=== PATIENT | female | born 1990 | race Caucasian/White ===

== ENCOUNTER 2017-08-20 18:55 | Emergency (ER) | payer MEDICAID, OTHER ==
[2017-08-20 19:08] VITALS: BP 107/71
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
== END 2017-08-20 20:21 | disposition home or self-care (01) ==
LOC: CED 18:55
DX: S69.91XA Unspecified injury of right wrist, hand and finger(s), initial encounter (principal); Z91.040 Latex allergy status; X58.XXXA Exposure to other specified factors, initial encounter
CPT/HCPCS: 73110-PO

== ENCOUNTER 2017-09-04 17:57 | Emergency (ER) | payer MEDICAID ==
--- NOTE | 2017-09-04 18:29 | EDPHY ---
H & P Stated Complaint: abd pain Time Seen by Provider: 09/04/17 18:28 HPI/ROS: HPI: This is a 27-year-old female who presents with Chief Complaint: Abdominal pain, 12 weeks Location: Quality: Duration: Signs and Symptoms: no fever, no nausea, no vomiting, no hematemesis, no blood in stool, no abdominal bloating, no diarrhea, no back pain, no urinary symptoms , no vaginal bleeding/discharge, no indigestion, no chest pain, no shortness of breath Timing: Severity: Context: Modifying Factors: Comment: ROS: see HPI Constitutional: No fever, no chills, no weight loss Eyes: No blurred vision Respiratory: No shortness of breath, no cough Cardiovascular: No chest pain, no palpitations Gastrointestinal: No nausea, no vomiting, no diarrhea, no hematemesis, no blood in stool Genitourinary: No dysuria, no blood in urine Extremities: No myalgias, no edema Neurologic: No weakness, no numbness Skin: No rashes, no petechiae Hematologic: No bruising, no bleeding MEDICAL/SURGICAL/SOCIAL HISTORY: Medical history: Bipolar, Rheumatoid Arthritis. asthma, polycystic ovary syndrome, migraines Surgical history: Denies Social history: Tobacco use. Family history noncontributory. CONSTITUTIONAL: awake and alert, no obvious distress HEENT: Atraumatic and normocephalic, PERRL, EOMI. Nares patent; no rhinorrhea; no nasal mucosal edema. Tympanic membranes clear. Oropharynx clear, no exudate and moist pink mucosa. Airway patent. No lymphadenopathy. No meningismus. Cardiovascular: Normal S1/S2, regular rate, regular rhythm, without murmur rub or gallop. PULMONARY/CHEST: Symmetrical and nontender. Clear to auscultation bilaterally. Good air movement. No accessory muscle usage. ABDOMEN: Soft, nondistended, nontender, no rebound, no guarding, no peritoneal signs, no masses or organomegaly. No CVAT. EXTREMITIES: 2/2 pulses, strength 5/5, no deformities, no clubbing, no cyanosis or edema. NEUROLOGICAL: no focal neuro deficits. GCS 15. SKIN: Warm and dry, no erythema. no rash. Good capillary refill. Source: Patient Exam Limitations: No limitations - Personal History LMP (Females 10-55): Current Tetanus/Diphtheria Vaccine: Yes Current Tetanus Diphtheria and Acellular Pertussis (TDAP): Yes - Medical/Surgical History Hx Asthma: Yes Hx Chronic Respiratory Disease: No Hx Diabetes: No Hx Cardiac Disease: No Hx Renal Disease: No Hx Cirrhosis: No Hx Alcoholism: No Hx HIV/AIDS: No Other PMH: Bipolar. Rheumatoid Arthritis. asthma, polycystice ovary syndrome, migraines - Social History Smoking Status: Current every day smoker Constitutional: Initial Vital Signs Temperature (C) 36.9 C 09/04/17 18:02 Heart Rate 115 H 09/04/17 18:02 Respiratory Rate 16 09/04/17 18:02 O2 Sat (%) 99 09/04/17 18:02 O2 Delivery Mode Room Air Allergies/Adverse Reactions: cefaclor [From Ceclor] Allergy (Verified 09/04/17 18:01) cephalexin monohydrate [From Keflex] Allergy (Verified 09/04/17 18:01) Hives chlorpheniramine maleate [From Supres] Allergy (Verified 09/04/17 18:01) Hives latex [Latex] Allergy (Verified 09/04/17 18:01) phenylpropanolamine HCl [From Supres] Allergy (Verified 09/04/17 18:01) Hives Home Medications: Medication Instructions Recorded lamoTRIgine [Lamictal Odt] 25 mg PO 01/16/12 Latuda 08/20/17 Seroquel 08/20/17 09/04/17 Medical Decision Making - Data Points Laboratory Results: 09/04/17 18:10 Urine Color YELLOW Urine Appearance HAZY Urine pH 5.0 (5.0-7.5) Ur Specific [place] 1.034 H (1.002-1.030) Urine Protein 1+ H (NEGATIVE) Urine Ketones TRACE H (NEGATIVE) Urine Blood NEGATIVE (NEGATIVE) Urine Nitrate NEGATIVE (NEGATIVE) Urine Bilirubin NEGATIVE (NEGATIVE) Urine Urobilinogen 2.0 EU H EU (0.2-1.0) Ur Leukocyte Esterase TRACE H (NEGATIVE) Urine RBC Pending Urine WBC Pending Ur Epithelial Cells Pending Urine Glucose NEGATIVE (NEGATIVE) Departure - Departure Referrals: NONE *PRIMARY CARE P,. [Primary Care Provider] - As per Instructions
[2017-09-04] MEDS ORDERED: NS 1,000 ML IV ONE (18:36)
--- NOTE | 2017-09-04 18:40 | EDPHY ---
H & P Stated Complaint: abd pain Time Seen by Provider: 09/04/17 18:28 HPI/ROS: CHIEF COMPLAINT: Pelvic pain HISTORY OF PRESENT ILLNESS: 27-year-old female G 8 SAB 7 12 weeks by early ultrasound with twins presents with lower abdominal pain. Onset of intermittent pelvic cramping this morning. Persistent since then. No pain now. No vaginal bleeding. She was on progesterone during this until week 10. REVIEW OF SYSTEMS: complete 10 point ROS negative except at noted in the HPI - Personal History LMP (Females 10-55): Current Tetanus/Diphtheria Vaccine: Yes Current Tetanus Diphtheria and Acellular Pertussis (TDAP): Yes - Medical/Surgical History Hx Asthma: Yes Hx Chronic Respiratory Disease: No Hx Diabetes: No Hx Cardiac Disease: No Hx Renal Disease: No Hx Cirrhosis: No Hx Alcoholism: No Hx HIV/AIDS: No Other PMH: Bipolar. Rheumatoid Arthritis. asthma, polycystice ovary syndrome, migraines - Social History Smoking Status: Current every day smoker Additional Social History: IV drug abuse, quit in April 2017 - Physical Exam Exam: General Appearance: Alert, pleasant Eyes: Pupils equal and round, no conjunctival pallor ENT, Mouth: Mucous membranes moist Neck: Normal inspection Respiratory: Lungs are clear to auscultation Cardiovascular: Regular rate and rhythm Gastrointestinal: Abdomen is soft and nontender Neurological: A&O, nonfocal, normal gait Skin: Warm and dry Extremities: Normal inspection Psychiatric: Mood and affect normal Constitutional: Initial Vital Signs Temperature (C) 36.9 C 09/04/17 18:02 Heart Rate 115 H 09/04/17 18:02 Respiratory Rate 16 09/04/17 18:02 O2 Sat (%) 99 09/04/17 18:02 O2 Delivery Mode Room Air Allergies/Adverse Reactions: cefaclor [From Ceclor] Allergy (Verified 09/04/17 18:01) cephalexin monohydrate [From Keflex] Allergy (Verified 09/04/17 18:01) Hives chlorpheniramine maleate [From Supres] Allergy (Verified 09/04/17 18:01) Hives latex [Latex] Allergy (Verified 09/04/17 18:01) phenylpropanolamine HCl [From Supres] Allergy (Verified 09/04/17 18:01) Hives Home Medications: Medication Instructions Recorded lamoTRIgine [Lamictal Odt] 25 mg PO 01/16/12 Latuda 08/20/17 Seroquel 08/20/17 09/04/17 Medical Decision Making - Diagnostics Imaging Results: Imaging Impressions Obstetrics Ultrasound 09/04/17 18:37 Impression: 1. Living dichorionic diamniotic twin , with no visible complication. 2. Posterior placenta overlying the internal os, a common finding at this gestational age. Findings discussed with Genie Acosta M.D., on September 04, 2017 at 2000. ED Course/Re-evaluation: This patient presents with lower abdominal cramping, concerning for threatened miscarriage. Pelvic ultrasound ordered. UA is contaminated. She does not have UTI symptoms. A urine culture was sent. I will not place her on antibiotics for now. Ultrasound results discussed with the patient. Abdomen continues to be soft and nontender. She will follow up with her salesperson flowers tomorrow. Differential Diagnosis: Differential diagnosis includes though it is not limited to threatened miscarriage, ectopic , ovarian cyst, ovarian torsion, PID, UTI, appendicitis. - Data Points Laboratory Results: Laboratory Results 09/04/17 18:41 09/04/17 18:41 09/04/17 09/04/17 09/04/17 18:41 18:41 18:10 WBC 11.52 10^3/uL H 10^3/uL (3.80-9.50) RBC 3.62 10^6/uL L 10^6/uL (4.18-5.33) Hgb 11.7 g/dL L g/dL (12.6-16.3) Hct 33.1 % L % (38.0-47.0) MCV 91.4 fL fL (81.5-99.8) MCH 32.3 pg pg (27.9-34.1) MCHC 35.3 g/dL g/dL (32.4-36.7) RDW 13.9 % % (11.5-15.2) Plt Count 206 10^3/uL 10^3/uL (150-400) MPV 11.0 fL fL (8.7-11.7) Neut % (Auto) 60.6 % % (39.3-74.2) Lymph % (Auto) 32.2 % % (15.0-45.0) [place] % (Auto) 5.6 % % (4.5-13.0) Eos % (Auto) 1.1 % % (0.6-7.6) Baso % (Auto) 0.2 % L % (0.3-1.7) Nucleat RBC Rel Count 0.0 % % (0.0-0.2) Absolute Neuts (auto) 6.97 10^3/uL H 10^3/uL (1.70-6.50) Absolute Lymphs (auto) 3.71 10^3/uL H 10^3/uL (1.00-3.00) Absolute Monos (auto) 0.65 10^3/uL 10^3/uL (0.30-0.80) Absolute Eos (auto) 0.13 10^3/uL 10^3/uL (0.03-0.40) Absolute Basos (auto) 0.02 10^3/uL 10^3/uL (0.02-0.10) Absolute Nucleated RBC 0.00 10^3/uL 10^3/uL (0-0.01) Immature Gran % 0.3 % % (0.0-1.1) Immature Gran # 0.04 10^3/uL 10^3/uL (0.00-0.10) Sodium 138 mEq/L mEq/L (135-145) Potassium 3.6 mEq/L mEq/L (3.5-5.2) Chloride 105 mEq/L mEq/L (97-110) Carbon Dioxide 20 mEq/l L mEq/l (22-31) Anion Gap 13 mEq/L mEq/L (8-16) BUN 7 mg/dL mg/dL (7-23) Creatinine 0.5 mg/dL L mg/dL (0.6-1.0) Estimated GFR > 60 Glucose 93 mg/dL mg/dL (70-100) Calcium 9.0 mg/dL mg/dL (8.5-10.4) Beta HCG, Quant 02556.00 mIU/mL H mIU/mL (0.00-4.83) Urine Color YELLOW Urine Appearance HAZY Urine pH 5.0 (5.0-7.5) Ur Specific [place] 1.034 H (1.002-1.030) Urine Protein 1+ H (NEGATIVE) Urine Ketones TRACE H (NEGATIVE) Urine Blood NEGATIVE (NEGATIVE) Urine Nitrate NEGATIVE (NEGATIVE) Urine Bilirubin NEGATIVE (NEGATIVE) Urine Urobilinogen 2.0 EU H EU (0.2-1.0) Ur Leukocyte Esterase TRACE H (NEGATIVE) Urine RBC 25-50 /hpf H /hpf (0-3) Urine WBC 3-5 /hpf H /hpf (0-3) Ur Epithelial Cells 2+ /lpf H /lpf (NONE-1+) Urine Mucus 2+ /lpf H /lpf (NONE-1+) Urine Glucose NEGATIVE (NEGATIVE) Medications Given: Discontinued Medications Acetaminophen (Tylenol) 1,000 mg PO EDNOW ONE Stop: 09/04/17 19:55 Last Admin: 09/04/17 20:01 Dose: 1,000 mg Sodium Chloride (Ns) 1,000 mls @ 0 mls/hr IV ONCE ONE; Wide Open PRN Reason: Protocol Stop: 09/04/17 18:37 Last Admin: 09/04/17 18:47 Dose: 1,000 mls Departure - Departure Disposition: Home, Routine, Self-Care Clinical Impression: Pelvic pain affecting Qualifiers: Trimester: first trimester Qualified Code(s): O26.891 - Other specified related conditions, first trimester; R10.2 - Pelvic and perineal pain ; R10.2 - Pelvic and perineal pain Condition: Good Instructions: Pelvic Pain in Women (ED) Additional Instructions: Return for worsening symptoms or any concerns. Follow-up with your residential field manager tomorrow. Drink plenty of fluids. Avoid heavy lifting. Referrals: NONE *PRIMARY CARE P,. [Primary Care Provider] - As per Instructions Stand Alone Forms: Work Limited Duty
[2017-09-04 18:52] LABS: PLATELET COUNT 206 10^3/uL (150-400)
[2017-09-04] MEDS ORDERED: ACETAMINOPHEN 500 MG TAB PO ONE (19:54)
[2017-09-04 20:40] VITALS: BP 111/66
== END 2017-09-04 20:38 | disposition home or self-care (01) ==
DX: O26.891 Other specified pregnancy related conditions, first trimester (principal); R10.2 Pelvic and perineal pain; E86.9 Volume depletion, unspecified; J45.909 Unspecified asthma, uncomplicated; F17.200 Nicotine dependence, unspecified, uncomplicated; Z3A.12 12 weeks gestation of pregnancy; Z91.040 Latex allergy status

== ENCOUNTER 2017-10-09 22:12 | Emergency (ER) | payer MEDICAID ==
[2017-10-09] MEDS ORDERED: NS 1,000 ML IV ONE (22:26)
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
[2017-10-09 22:51] LABS: PLATELET COUNT 191 10^3/uL (150-400)
[2017-10-09] MEDS ORDERED: NITROFURANTOIN MACROBID 100 MG CAP PO ONE (23:10)
[2017-10-10 00:36] VITALS: BP 116/70
== END 2017-10-10 00:36 | disposition home or self-care (01) ==
DX: O23.42 Unspecified infection of urinary tract in pregnancy, second trimester (principal); E86.9 Volume depletion, unspecified; B96.89 Other specified bacterial agents as the cause of diseases classified elsewhere; F17.200 Nicotine dependence, unspecified, uncomplicated; J45.909 Unspecified asthma, uncomplicated; Z3A.17 17 weeks gestation of pregnancy; Z79.82 Long term (current) use of aspirin; Z91.040 Latex allergy status

== ENCOUNTER → 2017-10-27 | Outpatient (CLI) | payer MEDICAID | LOC: FIMAGING 11:48 | PROVIDERS: ATTEND Obstetrics & Gynecology | DX: O30.042 Twin pregnancy, dichorionic/diamniotic, second trimester (principal); O99.342 Other mental disorders complicating pregnancy, second trimester; F31.9 Bipolar disorder, unspecified; Z3A.19 19 weeks gestation of pregnancy ==

== ENCOUNTER → 2017-11-24 | Outpatient (CLI) | payer MEDICAID | LOC: FIMAGING 11:26 | PROVIDERS: ATTEND Obstetrics & Gynecology | DX: O30.042 Twin pregnancy, dichorionic/diamniotic, second trimester (principal); O99.342 Other mental disorders complicating pregnancy, second trimester; F31.9 Bipolar disorder, unspecified; Z79.899 Other long term (current) drug therapy ==

== ENCOUNTER 2017-12-13 | Emergency (ER) | payer MEDICAID | END 2017-12-13 14:23 | disposition home or self-care (01) | DX: S63.501A Unspecified sprain of right wrist, initial encounter (principal); F17.200 Nicotine dependence, unspecified, uncomplicated; X50.1XXA Overexertion from prolonged static or awkward postures, initial encounter | CPT/HCPCS: L3984 ==

== ENCOUNTER → 2018-01-01 | Outpatient (CLI) | payer MEDICAID | LOC: FIMAGING 12:14 | PROVIDERS: ATTEND Obstetrics & Gynecology | DX: O30.043 Twin pregnancy, dichorionic/diamniotic, third trimester (principal); O99.333 Smoking (tobacco) complicating pregnancy, third trimester; O99.343 Other mental disorders complicating pregnancy, third trimester; Z3A.28 28 weeks gestation of pregnancy; F17.200 Nicotine dependence, unspecified, uncomplicated; Z79.899 Other long term (current) drug therapy ==

== ENCOUNTER 2018-01-02 13:19 | Observation (INO) | payer MEDICAID | END 2018-01-02 14:35 | disposition home or self-care (01) | LOC: FLD 13:19 | PROVIDERS: ADMIT Obstetrics & Gynecology; ATTEND Obstetrics & Gynecology | DX: O36.8130 Decreased fetal movements, third trimester, not applicable or unspecified (principal); O30.003 Twin pregnancy, unspecified number of placenta and unspecified number of amniotic sacs, third trimester; Z3A.28 28 weeks gestation of pregnancy ==

== ENCOUNTER → 2018-01-08 | Outpatient (CLI) | payer MEDICAID | LOC: FIMAGING 08:04 | PROVIDERS: ATTEND Obstetrics & Gynecology | DX: O30.043 Twin pregnancy, dichorionic/diamniotic, third trimester (principal); O36.5930 Maternal care for other known or suspected poor fetal growth, third trimester, not applicable or unspecified; O99.333 Smoking (tobacco) complicating pregnancy, third trimester; O99.343 Other mental disorders complicating pregnancy, third trimester; Z3A.29 29 weeks gestation of pregnancy ==

== ENCOUNTER 2018-01-12 11:55 | Day surgery (SDC) | payer MEDICAID | END 2018-01-12 13:32 | disposition home or self-care (01) | LOC: UNDOADMOB 11:55 → FLD 11:55 → FOBOP 11:55 → EDSTATUS 13:27 → FOBOP 13:32 | PROVIDERS: ATTEND Obstetrics & Gynecology | DX: O30.043 Twin pregnancy, dichorionic/diamniotic, third trimester (principal); O36.5931 Maternal care for other known or suspected poor fetal growth, third trimester, fetus 1; Z3A.30 30 weeks gestation of pregnancy ==

== ENCOUNTER → 2018-01-13 | Outpatient (CLI) | payer MEDICAID | LOC: FIMAGING 13:30 | PROVIDERS: ATTEND Obstetrics & Gynecology | DX: O30.043 Twin pregnancy, dichorionic/diamniotic, third trimester (principal); O36.5932 Maternal care for other known or suspected poor fetal growth, third trimester, fetus 2; O99.333 Smoking (tobacco) complicating pregnancy, third trimester; F17.210 Nicotine dependence, cigarettes, uncomplicated; O99.343 Other mental disorders complicating pregnancy, third trimester; F31.9 Bipolar disorder, unspecified; F43.10 Post-traumatic stress disorder, unspecified ==

== ENCOUNTER 2018-01-17 20:52 | Observation (INO) | payer MEDICAID | END 2018-01-17 22:10 | disposition home or self-care (01) | LOC: FLD 20:52 | PROVIDERS: ADMIT Obstetrics & Gynecology; ATTEND Obstetrics & Gynecology | DX: O30.003 Twin pregnancy, unspecified number of placenta and unspecified number of amniotic sacs, third trimester (principal); Z3A.31 31 weeks gestation of pregnancy ==

== ENCOUNTER 2018-01-19 11:50 | Day surgery (SDC) | payer MEDICAID | END 2018-01-19 12:59 | disposition home or self-care (01) | LOC: FLAB 11:50 → FOBOP 11:50 → EDSTATUS 12:28 → FOBOP 12:59 | PROVIDERS: ATTEND Obstetrics & Gynecology | DX: O30.003 Twin pregnancy, unspecified number of placenta and unspecified number of amniotic sacs, third trimester (principal); Z3A.31 31 weeks gestation of pregnancy ==

== ENCOUNTER 2018-01-22 12:16 | Day surgery (SDC) | payer MEDICAID ==
--- NOTE | 2018-01-22 13:41 | OBPROG ---
Labor Progress Note Assessment/Plan: Assessment: IUP at 31 wks with twins routine monitoring with NST Plan: Cont 2x/wk NSTs - watch for increased cramps, discharge etc 01/22/18 13:37 Subjective/Intrapartum Course: 01/22/18 13:38 pt denies problems per RN, feels no ctxns and no bleeding. very active babies. - Contraction Pattern Assessment Current Contraction Pattern: Regular (q 4-10, non palpable) - FHR Assessment Twin A FHR (bpm): 140 FHR Pattern Variability: Moderate FHR Category: 1 Twin B FHR (bpm): 130 FHR Pattern Variability: Moderate FHR Category: 1 Oxytocin Orders Assessment - Pre-Induction/Augmentation Assessment Gestational Age: 31 week(s) and 5 day(s) ICD10 Worksheet Patient Problems: Problems Problem Status Onset Fall Acute
== END 2018-01-22 13:04 | disposition home or self-care (01) ==
LOC: FOBOP 12:16
PROVIDERS: ATTEND Obstetrics & Gynecology
DX: O30.093 Twin pregnancy, unable to determine number of placenta and number of amniotic sacs, third trimester (principal); Z3A.31 31 weeks gestation of pregnancy

== ENCOUNTER → 2018-01-22 | Outpatient (CLI) | payer MEDICAID | LOC: FIMAGING 11:00 | PROVIDERS: ATTEND Obstetrics & Gynecology | DX: O30.043 Twin pregnancy, dichorionic/diamniotic, third trimester (principal); O36.5930 Maternal care for other known or suspected poor fetal growth, third trimester, not applicable or unspecified; Z3A.31 31 weeks gestation of pregnancy ==

== ENCOUNTER 2018-01-26 12:30 | Day surgery (SDC) | payer MEDICAID | END 2018-01-26 13:38 | LOC: FOBOP 12:30 → UNDOADMOB 12:30 → FLD 12:30 → FOBOP 13:38 → UNDODISOB 13:38 → EDSTATUS 01-27 13:25 | PROVIDERS: ATTEND Obstetrics & Gynecology | DX: O30.003 Twin pregnancy, unspecified number of placenta and unspecified number of amniotic sacs, third trimester (principal); Z3A.32 32 weeks gestation of pregnancy ==

== ENCOUNTER 2018-01-27 21:02 | Observation (INO) | payer MEDICAID ==
[2018-01-28] MEDS ORDERED: ceFAZolin 2 GM/DEXTROSE 100 ML IV ONE (00:53)
[2018-01-28] MEDS ORDERED: GABAPENTIN 300 MG CAP PO ONE (01:11)
[2018-01-28] MEDS ORDERED: QUEtiapine FUMARATE 50 MG TAB PO ONE (01:12)
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
[2018-01-28] MEDS ORDERED: LR 1,000 ML IV SCH (02:00)
[2018-01-28] MEDS ORDERED: LURASIDONE HCL 20 MG TAB PO ONE (02:00)
[2018-01-28] MEDS ORDERED: lamoTRIgine 100 MG TAB PO ONE (02:00)
[2018-01-28] MEDS ORDERED: NITROFURANTOIN MACROBID 100 MG CAP PO SCH (02:00)
[2018-01-28] MEDS ORDERED: TERBUTALINE SULFATE 1 MG/ML VIAL ONE (07:31)
[2018-01-28] MEDS ORDERED: OLIVE OIL 118 ML BTL ONE (07:32)
--- NOTE | 2018-01-28 09:46 | OBPROG ---
Labor Progress Note Assessment/Plan: Assessment: Plan: 01/28/18 09:45 - FHR Assessment Twin A FHR Pattern Variability: Moderate FHR Category: 1 Twin B FHR Pattern Variability: Moderate FHR Category: 1 Oxytocin Orders Assessment - Pre-Induction/Augmentation Assessment Gestational Age: 32 week(s) and 3 day(s) ICD10 Worksheet Patient Problems: Problems Problem Status Onset Fall Acute
== END 2018-01-28 08:20 | disposition home or self-care (01) ==
LOC: FLD 21:02
PROVIDERS: ADMIT Obstetrics & Gynecology; ATTEND Obstetrics & Gynecology
DX: Z03.79 Encounter for other suspected maternal and fetal conditions ruled out (principal); O30.043 Twin pregnancy, dichorionic/diamniotic, third trimester; O99.343 Other mental disorders complicating pregnancy, third trimester; O99.323 Drug use complicating pregnancy, third trimester; O99.333 Smoking (tobacco) complicating pregnancy, third trimester; F31.9 Bipolar disorder, unspecified; F43.12 Post-traumatic stress disorder, chronic; F11.11 Opioid abuse, in remission; F17.210 Nicotine dependence, cigarettes, uncomplicated; Z91.410 Personal history of adult physical and sexual abuse; Z91.42 Personal history of forced labor or sexual exploitation; Z3A.32 32 weeks gestation of pregnancy
CPT/HCPCS: 59025; G0378; J3105

== ENCOUNTER 2018-01-29 11:32 | Day surgery (SDC) | payer MEDICAID | END 2018-01-29 14:24 | disposition home or self-care (01) | LOC: FOBOP 11:32 | PROVIDERS: ATTEND Obstetrics & Gynecology | DX: O30.043 Twin pregnancy, dichorionic/diamniotic, third trimester (principal); O36.5930 Maternal care for other known or suspected poor fetal growth, third trimester, not applicable or unspecified; Z3A.32 32 weeks gestation of pregnancy ==

== ENCOUNTER → 2018-01-29 | Outpatient (CLI) | payer MEDICAID | LOC: FIMAGING 11:50 | PROVIDERS: ATTEND Obstetrics & Gynecology | DX: O30.043 Twin pregnancy, dichorionic/diamniotic, third trimester (principal); O36.5932 Maternal care for other known or suspected poor fetal growth, third trimester, fetus 2; Z3A.32 32 weeks gestation of pregnancy ==

== ENCOUNTER → 2018-02-02 | Day surgery (SDC) | payer MEDICAID | LOC: FOBOP 11:39 | PROVIDERS: ATTEND Obstetrics & Gynecology | DX: O30.003 Twin pregnancy, unspecified number of placenta and unspecified number of amniotic sacs, third trimester (principal); Z3A.33 33 weeks gestation of pregnancy ==

== ENCOUNTER 2018-02-05 10:48 | Day surgery (SDC) | payer MEDICAID | END 2018-02-05 12:24 | LOC: FOBOP 10:48 → UNDOADMOB 10:48 → FLD 10:48 → UNDODISOB 12:24 → FOBOP 12:24 → EDSTATUS 02-06 07:49 | PROVIDERS: ATTEND Hospitalist | DX: O30.003 Twin pregnancy, unspecified number of placenta and unspecified number of amniotic sacs, third trimester (principal); Z3A.33 33 weeks gestation of pregnancy | CPT/HCPCS: 80305; G0378 ==

== ENCOUNTER 2018-02-05 16:41 | Observation (INO) | payer MEDICAID ==
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
== END 2018-02-05 20:00 | disposition home or self-care (01) ==
LOC: FLD 16:41
PROVIDERS: ADMIT Hospitalist; ATTEND Anesthesiology Pain Medicine
DX: O30.043 Twin pregnancy, dichorionic/diamniotic, third trimester (principal); Z3A.33 33 weeks gestation of pregnancy
CPT/HCPCS: 59025; G0378; 80305

== ENCOUNTER 2018-02-09 12:49 | Day surgery (SDC) | payer MEDICAID | END 2018-02-09 13:50 | disposition home or self-care (01) | LOC: FOBOP 12:49 | PROVIDERS: ATTEND Obstetrics & Gynecology | DX: O30.003 Twin pregnancy, unspecified number of placenta and unspecified number of amniotic sacs, third trimester (principal); Z3A.34 34 weeks gestation of pregnancy ==

== ENCOUNTER 2018-02-14 15:34 | Observation (INO) | payer MEDICAID ==
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
== END 2018-02-14 18:00 | disposition home or self-care (01) ==
LOC: FLD 15:34
PROVIDERS: ADMIT Hospitalist; ATTEND Hospitalist
DX: O36.8120 Decreased fetal movements, second trimester, not applicable or unspecified (principal); O30.043 Twin pregnancy, dichorionic/diamniotic, third trimester; O99.333 Smoking (tobacco) complicating pregnancy, third trimester; F17.200 Nicotine dependence, unspecified, uncomplicated; Z3A.35 35 weeks gestation of pregnancy
CPT/HCPCS: 59025; G0378

== ENCOUNTER 2018-02-16 13:30 | Day surgery (SDC) | payer MEDICAID ==
--- NOTE | 2018-02-16 14:44 | OBPROG ---
Labor Progress Note Assessment/Plan: Assessment: IUP at 35+ wks twins Plan: routine monitoring 02/16/18 14:40 Subjective/Intrapartum Course: 02/16/18 14:41 Pt doing fine, denies problems - Contraction Pattern Assessment Current Contraction Pattern: Irregular (occas ctxns noted) - FHR Assessment Twin A FHR (bpm): 130 FHR Pattern Variability: Moderate FHR Category: 1 Twin B FHR (bpm): 140 FHR Pattern Variability: Moderate FHR Category: 1 Oxytocin Orders Assessment - Pre-Induction/Augmentation Assessment Gestational Age: 35 week(s) and 2 day(s) ICD10 Worksheet Patient Problems: Problems Problem Status Onset Fall Acute Twin gestation in third trimester Acute - ICD10 Problem Qualifiers (1) Twin gestation in third trimester
== END 2018-02-16 14:00 | disposition home or self-care (01) ==
LOC: FOBOP 13:30
PROVIDERS: ATTEND Obstetrics & Gynecology
DX: O30.003 Twin pregnancy, unspecified number of placenta and unspecified number of amniotic sacs, third trimester (principal); Z3A.35 35 weeks gestation of pregnancy

== ENCOUNTER → 2018-02-17 | Outpatient (CLI) | payer MEDICAID | LOC: FIMAGING 13:08 | PROVIDERS: ATTEND Obstetrics & Gynecology | DX: Z36.89 Encounter for other specified antenatal screening (principal); O30.043 Twin pregnancy, dichorionic/diamniotic, third trimester; Z3A.35 35 weeks gestation of pregnancy; O36.5932 Maternal care for other known or suspected poor fetal growth, third trimester, fetus 2 ==

== ENCOUNTER 2018-02-19 13:04 | Day surgery (SDC) | payer MEDICAID | END 2018-02-19 15:15 | disposition home or self-care (01) | LOC: FOBOP 13:04 | PROVIDERS: ATTEND Obstetrics & Gynecology | DX: O30.003 Twin pregnancy, unspecified number of placenta and unspecified number of amniotic sacs, third trimester (principal); Z3A.35 35 weeks gestation of pregnancy ==

== ENCOUNTER → 2018-02-23 | Day surgery (SDC) | payer MEDICAID | LOC: FOBOP 10:44 | PROVIDERS: ATTEND Obstetrics & Gynecology | DX: O30.003 Twin pregnancy, unspecified number of placenta and unspecified number of amniotic sacs, third trimester (principal); Z3A.36 36 weeks gestation of pregnancy ==

== ENCOUNTER → 2018-02-24 | Outpatient (CLI) | payer MEDICAID | LOC: FIMAGING 13:01 | PROVIDERS: ATTEND Obstetrics & Gynecology | DX: O30.043 Twin pregnancy, dichorionic/diamniotic, third trimester (principal); O36.5930 Maternal care for other known or suspected poor fetal growth, third trimester, not applicable or unspecified; O99.343 Other mental disorders complicating pregnancy, third trimester; Z3A.36 36 weeks gestation of pregnancy; Z79.899 Other long term (current) drug therapy ==

== ENCOUNTER 2018-02-26 12:33 | Day surgery (SDC) | payer MEDICAID | END 2018-02-26 12:55 | disposition home or self-care (01) | LOC: FOBOP 12:33 | PROVIDERS: ATTEND Obstetrics & Gynecology | DX: O30.003 Twin pregnancy, unspecified number of placenta and unspecified number of amniotic sacs, third trimester (principal); Z3A.36 36 weeks gestation of pregnancy ==

== ENCOUNTER 2018-02-27 09:23 | Inpatient (IN) | payer MEDICAID ==
[2018-02-27 11:00] LABS: PLATELET COUNT 133 10^3/uL (150-400)
[2018-02-27] MEDS ORDERED: MISOPROSTOL 200 MCG TAB ONE (13:21)
[2018-02-27] MEDS ORDERED: OXYTOCIN 10 UNIT/ML VIAL ONE (13:21)
[2018-02-27] MEDS ORDERED: HEMABATE 250 MCG/1 ML AMP IM ONE (13:22)
[2018-02-27] MEDS ORDERED: METHYLERGONOVINE MAL 0.2 MG/ML INJ ONE (13:22)
[2018-02-27] MEDS ORDERED: PHENYLEPHRINE HCL 100 MCG/ML SYR ONE (14:14)
[2018-02-27] MEDS ORDERED: BUPIVACAINE 0.25% 30 ML SDV ONE (14:14)
[2018-02-27] MEDS ORDERED: fentaNYL 2MCG/ML/BUP 0.1% RTU 100 ML BAG EP ONE (14:14)
[2018-02-27] MEDS ORDERED: fentaNYL 100 MCG/2 ML INJ ONE (14:16)
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
[2018-02-27] MEDS ORDERED: PHENYLEPHRINE HCL 100 MCG/ML SYR IVP PRN (17:20)
[2018-02-27] MEDS ORDERED: ONDANSETRON 4 MG/2 ML VIAL IVP PRN (17:20)
--- NOTE | 2018-02-27 17:29 | PREANESOB ---
Obstetric Pre-Anesthesia Info - General Info Proposed Procedure: Labor and delivery (twins). : 7 Para: 0 CLEMENTINA: 03/21/18 Gestational Age: 36 week(s) and 6 day(s) - Info Status: Full Term Monitors: External FHR Pattern: Reassuring - Labor Status Cervical Dilation per last OB SVE: 4 Station per last OB SVE: +1 Amniotic Fluid Color: Bloody Indications for Labor Analgesia: Augmentation of Labor, Pain Control, Possible Labor Epidural: Proposed Anesthesia ROS: Prior general anesthesia. Allergies/Adverse Reactions: Allergy/AdvReac Type Severity Reaction Status Date / Time cefaclor [From Ceclor] Allergy Verified 12/13/17 13:20 cephalexin monohydrate Allergy Hives Verified 12/13/17 13:20 [From Keflex] chlorpheniramine maleate Allergy Hives Verified 12/13/17 13:20 [From Supres] latex [Latex] Allergy Verified 12/13/17 13:20 phenylpropanolamine HCl Allergy Hives Verified 12/13/17 13:20 [From Supres] Sulfa (Sulfonamide Allergy Verified 01/28/18 01:02 Antibiotics) Home Medications: Medication Instructions Recorded lamoTRIgine [LamICTAL ODT] 200 mg PO 01/16/12 Latuda 60 mg PO DAILY 08/20/17 Seroquel 50 mg PO DAILY 08/20/17 1 tab PO DAILY 09/04/17 Gabapentin [Neurontin 300 MG (*)] 600 mg PO HS 01/26/18 Iron 1 PO BID 01/27/18 Acyclovir [Zovirax 400 mg (*)] 400 mg PO BID 02/09/18 Visit Medications: Generic Name Dose Route Start Last Admin Trade Name Freq PRN Reason Stop Dose Admin Fentanyl/Bupivacaine HCl 100 mls @ 0 mls/hr 02/27/18 17:30 Fentanyl/Bupivacaine/Ns 2 Mcg/Ml 0.1% (Premix EP 03/09/18 17:29 CONT JOHN Protocol As Directed Lactated Ringer's 500 mls @ 0 mls/hr 02/27/18 17:30 Lr IV 08/26/18 17:29 CONT JOHN As Directed Ondansetron HCl 4 mg 02/27/18 17:20 Zofran IVP 02/28/18 17:19 Q4HRS PRN Nausea/Vomiting, Can't Take PO Phenylephrine HCl 100 mcg 02/27/18 17:20 Neosynephrine IVP 08/26/18 17:19 .Q2M PRN Hypotension Discontinued Medications Generic Name Dose Route Start Last Admin Trade Name Brittany PRN Reason Stop Dose Admin Bupivacaine HCl Confirm 02/27/18 14:14 Sensorcaine 0.25% Sdv Administered 02/27/18 14:15 Dose 30 ml .ROUTE .STK-MED ONE Carboprost Tromethamine Confirm 02/27/18 13:22 Hemabate Administered 02/27/18 13:23 Dose 250 mcg IM .STK-MED ONE Fentanyl Confirm 02/27/18 14:16 Sublimaze Administered 02/27/18 14:17 Dose 100 mcg .ROUTE .STK-MED ONE Fentanyl/Bupivacaine HCl Confirm 02/27/18 14:14 Fentanyl/Bupivacaine/Ns 2 Mcg/Ml 0.1% (Premix Administered 02/27/18 14:15 Dose 100 ml EP .STK-MED ONE Methylergonovine Maleate Confirm 02/27/18 13:22 Methergine Administered 02/27/18 13:23 Dose 0.2 mg .ROUTE .STK-MED ONE Misoprostol Confirm 02/27/18 13:21 Cytotec Administered 02/27/18 13:22 Dose 1,000 mcg .ROUTE .STK-MED ONE Oxytocin Confirm 02/27/18 13:21 Pitocin Administered 02/27/18 13:22 Dose 40 unit .ROUTE .STK-MED ONE Phenylephrine HCl Confirm 02/27/18 14:14 Neosynephrine Administered 02/27/18 14:15 Dose 1,000 mcg .ROUTE .STK-MED ONE - Anesthesia History Response to Local Anesthetics: Normal Anesthesia & Operative History: No Prior Problems Family Anesthesia History: Negative - Social History Substance Use/Abuse: Tobacco (Some drug use before this .) - Vital Signs Latest Vital Signs (Nursing): Temp Pulse Resp BP Pulse Ox 90 121/63 H 02/27/18 13:01 02/27/18 13:01 Blood Pressure: 137/71 Heart Rate: 88 Height/Weight (Nursing): Height 160.02 cm Weight 100.698 kg - Focused Exam Neck exam: FROM Mallampati Score: Class 1 Mouth exam: normal dental/mouth exam Pulmonary: no respiratory distress Cardiovascular: regular rate and rhythym Labs: 02/27/18 09:57 Patient ABO/Rh O POSITIVE 02/27/18 09:57 - Plan Anesthetic Plan: CSE Consent Signed and on Chart: Yes Patient/Guardian Understands and Agrees to Plan: Yes Urgent/Emergent Case: Jarvis gutiérrez completed preop but documented later for safe timely pt care
[2018-02-27] MEDS ORDERED: LR 500 ML IV SCH (17:30)
[2018-02-27] MEDS ORDERED: fentaNYL 2MCG/ML/BUP 0.1% RTU 100 ML EP SCH (17:30)
--- NOTE | 2018-02-27 17:32 | POSTANESTH ---
Post Anesthetic Evaluation Cardiovascular Status: Normal, Stable, Similar to Pre-Op Cond Respiratory Status: Normal, Stable, Similar to Pre-op Cond. Level of Consciousness/Mental Status: Can Participate in Eval, Alert and Oriented Pain Control: Adequate, Prn Tx Ordered Nausea/Vomiting Control: Adequate, Prn Tx Ordered Complications Possibly Related to Anesthesia: None Noted
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
--- NOTE | 2018-02-27 21:43 | SOAPPROG ---
SOAP Progress Note Assessment/Plan: Assessment: Plan: 02/27/18 21:40 27 year old in labor with twins. Anesthesiologist requested to be present. Anesthesia on stand by. 02/27/18 21:43 Subjective: 27 year old with history of substance abuse. Has been off heroine and suboxone since 05/15 History of bipolar disorder, migraine byrne, asthma, RA. Patient smokes 1/2 pk of cigs/day. Objective: Vital Signs Temp Pulse Resp BP Pulse Ox 88 137/71 H 02/27/18 17:32 02/27/18 17:32 Laboratory Results 02/27/18 09:57 ICD10 Worksheet Patient Problems: Problems Problem Status Onset Active labor Acute Dichorionic diamniotic twin in third trimester Acute
[2018-02-27] MEDS ORDERED: OLIVE OIL 118 ML BTL ONE (22:29)
[2018-02-27] MEDS ORDERED: LR 500 ML IV PRN (22:45)
[2018-02-27] MEDS ORDERED: OXYTOCIN/RINGERS LACTATE 500 ML IV SCH (23:00)
[2018-02-27] MEDS ORDERED: DOCUSATE SODIUM 100 MG CAP PO PRN (23:28)
[2018-02-27] MEDS ORDERED: SIMETHICONE 80 MG TAB CHEW PO PRN (23:28)
[2018-02-27] MEDS ORDERED: HYDROCORTISONE 0.5% CREAM TP PRN (23:28)
--- NOTE | 2018-02-27 23:42 | OBDEL ---
Info Type: Vaginal Presentation at Delivery: Vertex (Baby B - vtx) L&D Analgesia/Anesthesia Type: Epidural GBS+: No Intrapartum Medications: Generic Name Dose Route Start Last Admin Trade Name Brittany PRN Reason Stop Dose Admin Fentanyl/Bupivacaine HCl 100 mls @ 0 mls/hr 02/27/18 17:30 02/27/18 21:16 Fentanyl/Bupivacaine/Ns 2 Mcg/Ml 0.1% (Premix EP 03/09/18 17:29 100 mls CONT JOHN Administration Protocol As Directed - Care Provider Rn Complex Care/TIER OVER: Radha Jorgensen - Hospital Course Intrapartum: 02/27/18 15:10 Pt is comfortable now, s/p epidural with no complaints. 02/27/18 17:15 Pt doing well with no complaints; she is happy she got the epidural. 02/27/18 19:32 Pt states right leg is more numb than the left one, wants to be repositioned. Indications for Delivery: Spontaneous Labor ( at 36 6/7) Vaginal Delivery - Delivery Provider Delivery Physician/CNM: Julieta Broderick - Labor and Delivery Onset of Contractions Date: 02/27/18 Onset of Contractions Time: 05:00 Onset of Contractions Type: Spontaneous Rupture of Membranes Date: 02/27/18 Rupture of Membranes Time: 15:00 Rupture of Membranes Type: Artificial (Baby B at 2256 with clear amniotic fluid- copious amounts) Amniotic Fluid Color: Bloody Dilation Complete Date: 02/27/18 Dilation Complete Time: 21:49 Placenta Delivery Date: 02/27/18 Placenta Delivery Time: 23:08 Total Hours of Labor: 18 Non-surgical Procedures: Amniotomy, FSE Laceration: 2nd Degree Repair: 3-0, Vicryl Vaginal Sponge Count Correct: Yes Vaginal Needle Count Correct: Yes Vaginal Sweep Performed: Yes EBL: 300 cc and an additional 180 cc in recovery Delivery Events: Nuchal Cord (Baby A with nuchal x 1 - delivered through Baby B with nuchal x 1 - delivered through) Delivery Comment: Uncomplicated of viable female twins. [place] Data CLEMENTINA: 03/21/18 Gestational Age: 36 week(s) and 6 day(s) Twin A Delivery Date: 02/27/18 Delivery Time: 22:54 Sex of : Female Weight (gm): 2267.962 g Score (1 Min): 8 Score (5 Min): 9 Twin B Delivery Date: 02/27/18 Delivery Time: 23:03 Sex of : Female Weight (gm): 2409.709 g Score (1 Min): 8 Score (5 Min): 9 ICD10 Worksheet Patient Problems: Problems Problem Status Onset Active labor Acute Dichorionic diamniotic twin in third trimester Acute (spontaneous vaginal delivery) Acute - ICD10 Problem Qualifiers (1) (spontaneous vaginal delivery)
[2018-02-27] MEDS: MISOPROSTOL 200 MCG TAB PR SCH (23:58)
[2018-02-28] MEDS: ACETAMINOPHEN 325 MG TAB PO SCH ×4 (01:23→21:20)
[2018-02-28] MEDS ORDERED: EPSOM SALT 454 GM TP ONE (02:27)
[2018-02-28] MEDS: IBUPROFEN 600 MG TAB PO SCH ×4 (03:23→22:46)
[2018-02-28] MEDS: MISOPROSTOL 200 MCG TAB PR SCH (06:27)
[2018-02-28] MEDS ORDERED: QUEtiapine FUMARATE 50 MG TAB PO SCH ×2 (09:00→18:00)
[2018-02-28] MEDS: DOCUSATE SODIUM 100 MG CAP PO PRN (09:00)
[2018-02-28] MEDS: lamoTRIgine 100 MG TAB PO SCH (09:01)
[2018-02-28] MEDS: FERROUS SULFATE 140 MG TAB.ER PO SCH (09:01)
[2018-02-28] MEDS: NICOTINE 7 MG/24 HR PATCH TD SCH (09:03)
--- NOTE | 2018-02-28 14:45 | OBPP ---
Progress Note Assessment/Plan: Assessment: 27 y/o G1P 1002 s/p twins PPD # 0.5 Plan: Routine PPC. Social work support. We discussed resources for breast engorgement when it happens. 02/28/18 14:42 Subjective/ Course: 02/28/18 14:39 Lolly is doing well today. She reports feeling overall well. She is having cramping and some perineal pain controlled with Ibuprofen. She has min lochia, is ambulating and voiding without difficulty. She has not had a BM yet and was constipated in . She is not breast feeding due to multiple psych meds , but she denies breast pain or problems with engorgement. Babies are doing well, watching glucose levels. She is very happy that she successfully delivered vaginally. Objective: 02/27/18 09:57 Patient ABO/Rh O POSITIVE 02/27/18 09:57 Temp Pulse Resp BP Pulse Ox 37.1 C 88 16 112/74 97 02/28/18 08:05 02/28/18 08:05 02/28/18 08:05 02/28/18 08:05 02/28/18 03:29 Uterine Position/Fundal Height: Umbilicus -2 Uterine Tone: Firm Physical Exam - Physical Exam General Appearance: alert, no apparent distress Neck: non-tender, full range of motion, supple Respiratory: chest non-tender, lungs clear, normal breath sounds Cardiac/Chest: regular rate, rhythm Abdomen: normal bowel sounds Extremities: swelling (tr), Khadar's sign (neg)
--- NOTE | 2018-02-28 17:42 | ASMTCMCOM ---
CM Note OMAR Note Notes: Met with mom and her twins. She is staying at [facility] and will go to her grandmother's to stay for a week after discharge. She is set up with [facility] and [facility] and tells me she has been approved for section 8 housing. Pt asked about respite care, where someone comes to the house to give her a break, CM researched but did not find anything in [facility]. Anticipate she will dc w/support of grandmother when ready to dc, CM available for any changes. Date Signed: 02/28/2018 05:42 PM Electronically Signed By:Melvi Kothari RN
[2018-02-28] MEDS: LURASIDONE HCL 20 MG TAB PO SCH (18:11)
[2018-02-28] MEDS: ONDANSETRON DISINTEGRATING 4 MG TAB PO PRN (18:58)
[2018-03-01] MEDS: ACETAMINOPHEN 325 MG TAB PO SCH ×3 (04:00→16:28)
[2018-03-01] MEDS: IBUPROFEN 600 MG TAB PO SCH ×3 (04:00→16:28)
[2018-03-01] MEDS: FERROUS SULFATE 140 MG TAB.ER PO SCH (07:44)
[2018-03-01] MEDS: lamoTRIgine 100 MG TAB PO SCH (07:45)
[2018-03-01] MEDS: DOCUSATE SODIUM 100 MG CAP PO PRN (07:45)
[2018-03-01] MEDS: NICOTINE 7 MG/24 HR PATCH TD SCH (07:45)
[2018-03-01 08:28] VITALS: BP 118/79
--- NOTE | 2018-03-01 08:47 | OBPP ---
Progress Note Assessment/Plan: Assessment: 1) s/p of twins PPD # 1.5 - pt is stable 2) Anemia - pt is asymptomatic, cont iron 3) Bipolar d/o, PTSD - stable on meds Plan: Continue routine pp care Plan for d/c home if baby girls are discharged or to [facility] if they are not Instructions reviewed with pt No Rx given, cont OTC Advil and Tylenol prn Pelvic rest Cont iron, colace prn To f/u with psychiatrist re: Seroquel at night Working with director social welfare RTO in 4 weeks for mood check and 6 weeks for pp visit 03/01/18 08:49 Subjective/ Course: 02/28/18 14:39 Lolly is doing well today. She reports feeling overall well. She is having cramping and some perineal pain controlled with Ibuprofen. She has min lochia, is ambulating and voiding without difficulty. She has not had a BM yet and was constipated in . She is not breast feeding due to multiple psych meds , but she denies breast pain or problems with engorgement. Babies are doing well, watching glucose levels. She is very happy that she successfully delivered vaginally. 03/01/18 08:47 Pt seen and examined. Doing well with no complaints. She slept for 5 hours and feels good! Minimal cramping. Mod lochia. Pt is OOB, kayleen regular diet, voiding and had BM x 1. She is bottle feeding twin girls. Twin girls no longer having glucose issues. Objective: 02/27/18 09:57 Patient ABO/Rh O POSITIVE 02/27/18 09:57 Temp Pulse Resp BP Pulse Ox 36.5 C 72 18 118/79 96 03/01/18 07:30 03/01/18 07:30 03/01/18 07:30 03/01/18 07:30 02/28/18 20:00 Uterine Position/Fundal Height: Umbilicus -2 Uterine Tone: Firm Physical Exam - Physical Exam General Appearance: WD/WN, alert, no apparent distress Respiratory: lungs clear, normal breath sounds Cardiac/Chest: regular rate, rhythm Abdomen: normal bowel sounds, non-tender, soft, flatus (+) Extremities: non-tender, normal inspection Skin: normal color, warm/dry Neuro/Psych: alert, normal mood/affect, oriented x 3
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
[2018-03-01] MEDS ORDERED: NICOTINE 14 MG/24 HR PATCH TD SCH (09:00)
[2018-03-01] MEDS ORDERED: MEASLES,MUMPS&RUBELLA VACC/PF 0.5 ML VIAL SC ONE (09:25)
--- NOTE | 2018-03-01 11:05 | POSTANESTH ---
Post Anesthetic Evaluation Cardiovascular Status: Normal, Stable Respiratory Status: Normal, Stable Level of Consciousness/Mental Status: Can Participate in Eval Pain Control: Adequate, Prn Tx Ordered Nausea/Vomiting Control: Adequate, Prn Tx Ordered Complications Possibly Related to Anesthesia: None Noted (s/p twin delivery with SOFIA in place. No complaints, doing well overall. Denies N/V/STERN/weakness/ paresthesia. Reports very mild site pain in low back.)
[2018-03-01] MEDS: ONDANSETRON DISINTEGRATING 4 MG TAB PO PRN (14:39)
[2018-03-01] MEDS: LURASIDONE HCL 20 MG TAB PO SCH (16:28)
[2018-03-01] MEDS ORDERED: QUEtiapine FUMARATE 50 MG TAB PO SCH (21:00)
== END 2018-03-01 19:00 | disposition home or self-care (01) | DRG 560 ==
LOC: FLD 09:23 → OBSVTOIN 02-28 11:19 → FOB 02-28 12:30
PROVIDERS: ADMIT Obstetrics & Gynecology; ATTEND Obstetrics & Gynecology
DX: O30.043 Twin pregnancy, dichorionic/diamniotic, third trimester (principal); Z37.2 Twins, both liveborn; O98.52 Other viral diseases complicating childbirth; Z3A.36 36 weeks gestation of pregnancy; B00.9 Herpesviral infection, unspecified; F31.9 Bipolar disorder, unspecified; F43.10 Post-traumatic stress disorder, unspecified; Z91.410 Personal history of adult physical and sexual abuse; O99.334 Smoking (tobacco) complicating childbirth; O99.344 Other mental disorders complicating childbirth; O69.82X1 Labor and delivery complicated by other cord entanglement, without compression, fetus 1; O69.82X2 Labor and delivery complicated by other cord entanglement, without compression, fetus 2; O70.0 First degree perineal laceration during delivery; O99.02 Anemia complicating childbirth; D64.9 Anemia, unspecified; F17.210 Nicotine dependence, cigarettes, uncomplicated
CPT/HCPCS: G0378; J2210; J2370; J2590; J3010

== ENCOUNTER 2018-05-20 17:53 | Emergency (ER) | payer MEDICAID ==
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
[2018-05-20] MEDS ORDERED: IBUPROFEN 600 MG TAB PO ONE (18:30)
[2018-05-20 19:12] VITALS: BP 122/80
== END 2018-05-20 19:10 | disposition home or self-care (01) ==
LOC: CED 17:53
DX: S83.92XA Sprain of unspecified site of left knee, initial encounter (principal); W18.49XA Other slipping, tripping and stumbling without falling, initial encounter
CPT/HCPCS: 73564-PO; 99283-ER; L1832-ER